=== PATIENT | male | born 1960 | race African-American/Black ===

== ENCOUNTER 2021-05-02 19:28 | Emergency (ER) | payer BC, SELFPAY ==
--- NOTE | ~2021-05-02 | XR_ITS ---
EXAMINATION: XR wrist RT min 3V DATE: 05/02/2021 20:25 INDICATION: Right wrist injury. TECHNIQUE: 4 views of right wrist were obtained. COMPARISON: None. FINDINGS: Bone alignment is normal. No fracture. There is mild osteoarthritis of radiocarpal joint, t riscaphe joint, and first carpometacarpal joint. There is moderate osteoarthritis of third metacarpop halangeal joint. IMPRESSION: 1. No fracture. 2. Polyarticular osteoarthritis. Reviewed, dictated and finalized at location A.
[2021-05-02 19:44] VITALS: BP 125/82; PULSE 75; RESP 16; TEMP 36.2; O2SAT 98
[2021-05-02] MEDS: LIDOCAINE HCL 1% LOCAL INJ 20 ML VIAL 5 ML INFILTRATE (20:05)
[2021-05-02] MEDS: TETANUS,DIPHTHERIA,AC PERTUSSIS ADULT (0.5 ML) BOOSTRIX IM (20:05)
--- NOTE | 2021-05-02 20:06 | ED.WOUNDLAC ---
HPI - Wound/Laceration General Chief Complaint: Wound/Laceration Stated Complaint: Laceration on Left Arm Time Seen by Provider: 05/02/21 20:06 Source: patient Mode of arrival: ambulatory Limitations: no limitations History of Present Illness HPI narrative: Micky Lombardo is a 60 yo male with PMH of hypertension and high cholesterol who [facility] with a laceration flap lateral forearm from broken glass and some complaints of tightness in his right wrist he was trying to set up a window and the window was bad today and pulled up his arm and the arm glass broke on his arm. Laceration is a 2-1/2 cm; controlled bleeding Related Data Allergies Allergy/AdvReac Type Severity Reaction Status Date / Time No Known Allergies Allergy Mild Verified 12/17/09 10:49 Review of Systems Review of Systems: CONSTITUTIONAL: Denies fever, chills, sweats. EYES: Denies visual changes, redness, discharge. ENT: Denies rhinorrhea, congestion, sore throat, otalgia. CARDIOVASCULAR: Denies chest pain, palpitations, edema. RESPIRATORY: Denies dyspnea, wheezing, cough GASTROINTESTINAL: Denies abdominal pain, nausea, vomiting, diarrhea. GENITOURINARY: Denies dysuria, hematuria, abnormal discharge SKIN: Denies rash or itching. Laceration to left lateral forearm NEUROLOGIC: Denies numbness, or focal weakness. PSYCHIATRIC: Denies anxiety or depression. Complaining of right wrist discomfort PMFSH Past Medical History Medical History Aortic arch anomaly High blood pressure High cholesterol Family History Family History Other Hypertension Social History Social History Smoking status: Never smoker Alcohol intake: never Comments At time of signature, I agree with nursing past medical, surgical, social and family history. There is no relevant family history pertinent to the presenting complaint. Exam Narrative: GENERAL: This is a well-nourished, well-developed patient, in mild distress. HEAD: normocephalic, atraumatic. EYES: . Sclera clear/white. Vision is grossly intact. EARS: External ears normal,. Hearing grossly intact. NOSE: External nose normal without nasal discharge, nares without redness, no rhinorrhea. THROAT: Mucous membranes moist, NECK: Neck supple, CARDIOVASCULAR: Regular rate and rhythm without murmurs, gallops, or rubs. RESPIRATORY: Clear to auscultation. Breath sounds equal bilaterally. No wheezes, rales, or rhonchi. GASTROINTESTINAL: Abdomen soft, SKIN: warm, intact with no suspicious lesions or rash, good texture and turgor. 2.5 cm laceration to the left lateral forearm NEURO: awake, alert, and oriented to person, place and time. There were no obvious focal neurologic abnormalities. Steady gait EXTREMITIES: Normal range of motion. ; Planing of discomfort right wrist but has full range of motion BACK: Nontender without deformity Course Course Emergency Course: Patient comes with a left forearm laceration and right wrist pain Laceration left forearm repaired Right wrist x-ray negative for fracture Oz wrap applied to wrist Tetanus injection given Vital Signs Vital signs: Vital Signs Temperature 97.1 F L 05/02/21 19:44 Pulse Rate 75 05/02/21 19:44 Respiratory Rate 16 05/02/21 19:44 Blood Pressure 125/82 05/02/21 19:44 Pulse Oximetry 98 05/02/21 19:44 Temperature 97.1 F L 05/02/21 19:44 Pulse Rate 75 05/02/21 19:44 Respiratory Rate 16 05/02/21 19:44 Blood Pressure 125/82 05/02/21 19:44 Pulse Oximetry 98 05/02/21 19:44 Procedures Laceration Laceration 1: Date: 05/02/21 Time: 20:07 Site: upper extremity Size (cm): 2.5 Description: linear Depth: simple, single layer Local Anesthetic: lidocaine 1% Amount of anesthesia used (mL): 3 Pre-repair: wound
== END 2021-05-02 20:42 | disposition home or self-care (01) ==
PROVIDERS: Emergency Provider Nurse Practitioner; PCP Family Medicine
DX: S51.812A Laceration without foreign body of left forearm, initial encounter (principal); W25.XXXA Contact with sharp glass, initial encounter; Z23 Encounter for immunization; M25.531 Pain in right wrist; E78.00 Pure hypercholesterolemia, unspecified; I10 Essential (primary) hypertension
CPT/HCPCS: 12001; 73110; 90471; 90715; 99213; G0463